=== PATIENT | female | born 1955 | race Caucasian/White ===

== ENCOUNTER 2021-08-26 14:47 | Outpatient (CLI) | payer MEDICARE, BC, SELFPAY ==
--- NOTE | 2021-08-26 14:15 | DI.RAD_ITS ---
Exam(s) XR SHOULDER LT COMPLETE 2+V EXAM: XR SHOULDER LT COMPLETE 2+V CLINICAL HISTORY: Left shoulder pain. TECHNIQUE: 2D digital imaging was performed. Two views. COMPARISON: CR SHOULDER COMPLETE LT from 01/24/2020 MR MRI SHOULDER LT W/O CONTRAST from 04/02/2020 FINDINGS: BONES: Prior distal clavicular resection no acute fracture is present. No bony destructive lesion is seen. JOINTS: No dislocation present. Glenohumeral joint space is well maintained. There is mild spurring at the glenoid and greater tuberosity. SOFT TISSUE: Normal. IMPRESSION: Postsurgical and degenerative changes. DATA REPOSITORY: RADIATION DOSE DELIVERED:
== END 2021-08-26 14:48 | disposition home or self-care (01) ==
LOC: DIORS 14:48
PROVIDERS: PCP Internal Medicine; Referring Provider Internal Medicine; Visit Provider Physician Assistant
DX: M25.512 Pain in left shoulder (principal); Z98.890 Other specified postprocedural states
CPT/HCPCS: 99204; 73030

== ENCOUNTER → 2021-09-29 02:02 | Outpatient (CLI) | payer MEDICARE, BC, SELFPAY ==
--- NOTE | 2021-09-29 07:30 | DI.MRI_ITS ---
Exam(s) MR UPPER JOINT LT WO EXAM: MR UPPER JOINT LT WO CLINICAL HISTORY: LEFT SHOULDER PAIN,s/p arthroscopy, z98.890 TECHNIQUE: Multiplanar multisequence MRI of the shoulder was performed. COMPARISON: CR SHOULDER COMPLETE LT from 01/24/2020 MR MRI SHOULDER LT W/O CONTRAST from 04/02/2020 CR XR SHOULDER LT COMPLETE 2+V from 08/26/2021 FINDINGS: MARROW:There is no evidence of fracture, Hill-Sachs deformity, nor ominous osseous lesions. Compared to the prior MRI study March 2020 there has been interval rotator cuff surgery as well as biceps te nodesis ROTATOR CUFF MECHANISM: AC JOINT/ACROMIUM: Previous surgery. No osteophytic impingement at this level. There is no evidence of os acromiale. Supraspinatus: Intact. No evidence of tear nor muscle atrophy. Infraspinatus: There is a linear focus of signal abnormality at the infraspinatus insertional aspect which is thin but does traverse thickness of the supraspinatus, this just above the greater tuberosit y attachment. Most probably represents a thin full-thickness tear. No muscle atrophy. Teres Minor: Intact. No evidence of tear nor muscle atrophy. Subscapularis/anterior cuff: Intact. No abnormal signal at the level of the multipennate insertional fibers. No significant tear nor atrophy. BICEPS TENDON: Normal position within the intertubercular groove. The biceps tenodesis site is in th e anterior humerus head. No tear nor tenosynovitis evident. LABRUM: There is signal abnormality in the superior labrum posterior to the sublabral recess consiste nt with element of surface tear. Posterior labrum appears intact. Anterior labrum appears intact. Inferior labrum appears intact. Inferior glenohumeral ligament appears intact. GLENOHUMERAL JOINT: No joint effusion nor obvious loose intra-articular bodies. No chondral defects. No osteophytes. No degenerative subarticular cysts. QUADRILATERAL SPACE: No evidence of mass in the region of the axillary nerve and dorsal circumflex hu meral vessels. Visualized triceps muscle at this level appears unremarkable. IMPRESSION: 1. Compared to prior MRI scan of March 2020 there has been interval rotator cuff surgery and biceps tenodesis. 2. Supraspinatus appears intact. Small focus of bright signal is seen traversing the infraspinatus w hich may be thin full-thickness tear but there is no fluid in the overlying subacromial bursa no retr action of the musculotendinous junction.. No muscle atrophy. 3. Subscapularis anterior cuff appears intact as does the teres minor. 4. Superior labral surface signal abnormality consistent with tearing. No other obvious labral tears nor evidence of paralabral cyst. DATA REPOSITORY:
== END ==
PROVIDERS: PCP Internal Medicine; Visit Provider Student in an Organized Health Care Education/Training Program
DX: M25.512 Pain in left shoulder (principal); Z98.890 Other specified postprocedural states
CPT/HCPCS: 73221

== ENCOUNTER → 2021-10-08 11:10 | Outpatient (BNVA) | payer MEDICARE, BC, SELFPAY | PROVIDERS: PCP Internal Medicine; Referring Provider Internal Medicine; Visit Provider Student in an Organized Health Care Education/Training Program | DX: M75.22 Bicipital tendinitis, left shoulder (principal); Z98.890 Other specified postprocedural states | CPT/HCPCS: 99215 ==

== ENCOUNTER 2021-11-18 02:51 | Outpatient (CLI) | payer MEDICARE, BC, SELFPAY ==
[2021-11-18 12:33] LABS: Source Nasal/Nares
[2021-11-18 15:19] LABS: COVID-19 PCR Negative (Negative)
== END 2021-11-18 02:52 | disposition home or self-care (01) ==
LOC: LBO 02:52
PROVIDERS: PCP Internal Medicine; Visit Provider Student in an Organized Health Care Education/Training Program
DX: Z20.822 Contact with and (suspected) exposure to COVID-19 (principal)
CPT/HCPCS: 87635

== ENCOUNTER 2021-11-20 08:53 | Day surgery (SDC) | payer MEDICARE, BC, SELFPAY ==
[2021-11-20] VITALS (10 sets, daily range): BP systolic 80–139; BP diastolic 31–67; PULSE 51–67; RESP 12–18; TEMP 36.2–36.7; O2SAT 97–99; BMI 28.6
[2021-11-20] MEDS: Lactated Ringers 1,000 ML 80 ML IV (09:42)
--- NOTE | 2021-11-20 09:55 | W.ANESPRE ---
General Info Date of Service Date Performed: 11/20/21 Height: 5 ft 2 in Weight: 71 kg Body Mass Index (BMI): 28.6 Surgical Procedure: Operation Date: 11/20/21 11:25 Proposed Procedure Side Surgeon p Shoulder Rotator Cuff Arthroscopic w/Extensive Debridement, Biceps Tenodesis, Subacromial Decompression Left Garo Srivastava MD Meds Allergies and Home Medications Allergies Allergy/AdvReac Type Severity Reaction Status Date / Time dexamethasone [From Decadron] Allergy Verified 11/20/21 09:14 codeine AdvReac Mild Nausea Verified 11/20/21 09:14 gabapentin [From Neurontin] AdvReac Verified 11/20/21 09:14 Home Medication Medication Instructions Recorded amlodipine 2.5 mg tablet 2.5 mg PO HS 08/06/21 betamethasone dipropionate 0.05 % 1 applic topical BID PRN 08/06/21 topical cream cetirizine 10 mg tablet 20 mg PO DAILY PRN 08/06/21 coenzyme Q10 100 mg capsule (Co 100 mg PO QHS 08/06/21 Q-10) folic acid 1 mg tablet 1 mg PO DAILY 08/06/21 hydrochlorothiazide 12.5 mg tablet 12.5 mg PO DAILY 08/06/21 levothyroxine 50 mcg tablet See Rx Instructions PO DAILY 08/06/21 (Synthroid) methotrexate sodium 2.5 mg tablet 2.5 mg PO QWEEK 08/06/21 montelukast 10 mg tablet 10 mg PO DAILY 08/06/21 (Singulair) tacrolimus 0.1 % topical ointment 1 applic topical BID 08/06/21 zolpidem 5 mg tablet (Ambien) 5 mg PO QHS PRN 08/26/21 losartan 100 mg tablet 50 mg PO DAILY 10/08/21 rosuvastatin 5 mg tablet See Rx Instructions PO DAILY 10/08/21 tildrakizumab-asmn 100 mg/mL 100 mg subcut Q12W 10/08/21 subcutaneous syringe (Ilumya) Current Visit Medications: Current Medications Generic Name Dose Route Start Last Admin Trade Name Freq PRN Reason Stop Dose Admin Ringer's Solution 1,000 mls @ 80 mls/hr 11/20/21 06:00 11/20/21 09:42 IV 12/19/21 23:59 80 mls/hr INFUSION DILMA Administration Cefazolin Sodium/Dextrose 2 gm in 50 mls @ 100 mls/hr 11/20/21 06:00 Ancef Duplex IVPB 12/19/21 23:59 PREOP DILMA IV Miscellaneous Supplies 1 each 11/20/21 06:00 Iv Access IV 12/19/21 23:59 DIRECTED DILMA Sodium Chloride 0 ml 11/20/21 06:00 Normal Saline Flush 10 Ml Syr IV 12/19/21 23:59 PRN PRN Sodium Chloride 0 ml 11/20/21 06:00 Normal Saline 10 Ml Vial IJ 12/19/21 23:59 DIRECTED PRN Sterile Water 0 ml 11/20/21 06:00 Water,Injection,Sterile 10 Ml Vial IJ 12/19/21 23:59 DIRECTED PRN PFSH Active Problems Active Problems: Problem Status Onset Code Asthma J45.909 Hyperlipemia E78.5 Hypothyroid E03.9 Former smoker Z87.891 Status post arthroscopy of left shoulder 04/23/20 Z98.890 Tendinitis of long head of biceps brachii of left shoulder M75.22 Medical History Medical History (Updated 11/20/21 @ 09:20 by Ross Knight) 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 states all negative 11/17/[address] [facility] [place] Medical History Comments:: Severe PONV r/t to general anesthesia per pt. Does well with Zofran. Surgical History Surgical History History of back surgery c6-c7 fusion and plating History of rotator cuff surgery right History of superficial keratectomy Hx of discectomy L5-S1 Tobacco Smoking/Tobacco Use Status: Former Tobacco Use Alcohol Alcohol Intake: current Alcohol intake frequency: a few times a week Substance Use Substance use: Never Substance use type: does not use Vital Signs and Lab Results Vital Signs Most Recent Vital Signs in EMR: Most Recent Vital Signs Temp Pulse Resp BP Pulse Ox 36.6 C 63 16 135/60 99 11/20/21 09:21 11/20/21 09:21 11/20/21 09:21 11/20/21 09:21 11/20/21 09:21 Lab Results Blood Type / Crossmatch: No Data to Display Complete Blood Count: No Data to Display Complete Metabolic Panel: No Data to Display Liver Function Panel: No Data to Display Coagulation Panel: No Data to Display Cardiac Panel: No Data to Display Arterial Blood Gas: No Data to Display Venous Blood Gas: No Data to Display Pancreas Panel: No Data to Display Thyroid Panel: No Data to Display Infectious Disease: Coronavirus (COVID-19)(PCR) Negative (Negative) 11/18/21 10:25 Coronavirus 2019 Source Nasal/Nares 11/18/21 10:25 Blood Cultures: No Data to Display Toxicology Panel: No Data to Display Imaging and Studies Imaging and Studies Study information below may be from another EMR and interpreted by another provider. Please see original notes in EMR for more complete details. EKG Summary: 11/19/2021: Stress ECG negative associated with exercise stress ECHO Stress Test Summary: 11/19/2021: Exercise Stress ECHO negative for ischemia, EF 55-60% Other Study Summary:: Abdomen/Pelvis CT: 11/11/2021: No aortic mass, patient was reporting abdominal pain radiating to back Anesthesia Assessment and Plan Anesthesia History Personal History: PONV Family History: No Family History of Anesthesia Complications Exercise Tolerance Exercise Tolerance: Metabolic Equivalents>4 Pertinent Negatives Pertinent Negatives: No Symptoms of GERD, No Major Cardiovascular Symptoms or Complaints (Patient reports studies/Stress ECHO completed at [facility] and patient reports no further interventions indicated.) and No Major Pulmonary Symptoms or Complaints Cardiac & Pulmonary Exam Cardiac Exam: Normal S1/S2 Heart Sounds Pulmonary Exam: Clear Bilateral Breath Sounds Implantable Cardiac Device Does patient have a Pacemaker or an ICD?: No Airway Exam Known Difficult Airway: No Mallampati Class: 2 Mouth Opening: Normal (> 3cm) Thyromental Distance: Greater than 3 cm Neck Range of Motion: Full ROM Neck Circumference: Normal Teeth Condition: Normal Dentition ASA Classification ASA Score: ASA 2 Emergency Case?: No NPO Status NPO Status: NPO Clears >2 hours, Solids >8 hours Anesthesia Plan Resuscitation Status: Full Code Anesthesia Technique: General Anesthesia Airway Planned: Endotracheal Tube Pain Management: Surgeon and patient request nerve block Monitors Used: Standard Monitors
--- NOTE | 2021-11-20 12:18 | W.ANESNERVE ---
Nerve Block Single Injection Procedure Date and Time Date Performed: 11/20/21 Procedure Start: 11:12 Location Where Procedure Performed Procedure Location: Day Surgery Unit Reason Performed: Postoperative Analgesia Requesting Provider: Garo Srivastava Timeout Performed Timeout Performed: Yes Monitoring Used ECG, Blood Pressure, SpO2 and See EMR for corresponding vital signs Sterility Sterility: Hand Hygiene, Surgical Cap, Surgical Mask, Sterile Gloves and Chlorhexidine Sedation Given During Procedure Sedation Given (Indicate Dose Given): Versed IV Dose:: 2mg Patient Mental Status Patient Mental Status: Awake Nerve Block 1st Nerve Block: Laterality: Left Block Type: Interscalene Needle / Catheter Used: 80mm SonoPlex II Local Anesthetic Bolus (Indicate Dose Given): Lidocaine used for local infiltration of skin, Injected in 3-5ml increments after negative blood aspiration and Bupivacaine 0.5% Dose:: 20ml Additives (Indicate Dose Given): None Ultrasound: Sterile probe cover and gel used Ultrasound Image Saved?: Yes Nerve Stimulator: Not Used Paresthesia: None Procedure Tolerated: No Complications and Patient tolerated well Procedure Outcome: Successful Performed By: Jose M Bates
[2021-11-20] MEDS: ceFAZolin 2 GM/50 ML BAG IVPB (12:20)
[2021-11-20] MEDS: EPINEPHrine 30 MG/30 ML VIAL (13:03)
[2021-11-20] MEDS: ePHEDrine 25 MG/5 ML Syringe IVP (13:57)
--- NOTE | 2021-11-20 15:19 | W.ANESPOSTOP ---
Postoperative Evaluation Date, Time and Location Date Performed: 11/20/21 Time Performed: 15:19 Patient Location: Day Surgery Unit Vital Signs Most Recent Imported Vital Signs: Most Recent Vital Signs Temp Pulse Resp BP Pulse Ox 36.2 C L 61 16 116/59 L 97 11/20/21 15:04 11/20/21 15:04 11/20/21 15:04 11/20/21 15:04 11/20/21 15:04 Pain Score Most Recent Pain Score: Most Recent Pain Score Pain Level 0 11/20/21 15:04 Assessment Mental Status: Awake (Alert & Oriented to Patient Baseline) Airway and Respiratory Function: Patent airway with normal (patient baseline) respiratory exam Cardiovascular Function: Hemodynamically Stable Hydration Status: Adequately Hydrated Nausea & Vomiting: No Nausea or Vomiting Pain: Pt. Denies Any Pain Peripheral Nerve Block: Regional nerve block not resolved at time of post operative discharge
--- NOTE | 2021-11-20 16:10 | W.PM.DSUDISC ---
Discharge Plan Disposition Patient Disposition: HOME Condition: Stable Discharge Details Reason For Visit: Left shoulder surgery Attending Provider: Garo Srivastava Primary Care Provider: Yusuf Herring Home Meds and New Rx's Prescriptions: New naproxen 250 mg tablet 250 - 500 mg PO BID PRNQty: 40 0RF Rx Instructions: take with a meal aspirin 81 mg tablet,delayed release (DR/EC) 81 mg PO DAILY 14 Days Qty: 14 0RF tramadol 50 mg tablet 50 mg PO Q8H PRN (Reason: severe pain) Qty: 9 0RF ondansetron 4 mg tablet,disintegrating 4 mg PO Q6H PRN (Reason: nausea or vomiting) Qty: 5 0RF Continued zolpidem [Ambien] 5 mg tablet 5 mg PO QHS PRN Ilumya 100 mg/mL syringe 100 mg subcut Q12W amlodipine 2.5 mg tablet 2.5 mg PO HS betamethasone dipropionate 0.05 % cream 1 applic topical BID PRN cetirizine 10 mg tablet 20 mg PO DAILY PRN coenzyme Q10 [Co Q-10] 100 mg capsule 100 mg PO QHS folic acid 1 mg tablet 1 mg PO DAILY hydrochlorothiazide 12.5 mg tablet 12.5 mg PO DAILY methotrexate sodium 2.5 mg tablet 2.5 mg PO QWEEK montelukast [Singulair] 10 mg tablet 10 mg PO DAILY levothyroxine [Synthroid] 50 mcg tablet See Rx Instructions PO DAILY Rx Instructions: TAKE 1 TBALET BY MOUTH MON-FRI AND 1.5 TABS ON WEEKEND tacrolimus 0.1 % ointment 1 applic topical BID losartan 100 mg tablet 50 mg PO DAILY rosuvastatin 5 mg tablet See Rx Instructions PO DAILY Rx Instructions: DAILY Discharge Instructions Additional Instructions: Surgery: Revision left shoulder arthroscopy with biceps tenodesis, extensive debridement (including synovial biopsy), and subacromial decompression. Activity: You should gradually increase range of motion motion and use of your shoulder. Protect the biceps repair. You may use your shoulder for all regular activities. Avoid heavy lifting, reaching overhead, and lifting away from body for approximately 6 to 8 weeks. You may use the sling whenever you are out of the house for a few weeks. At home it is best to remove the sling and rest the arm on a pillow at your side or support the operative side with your other hand. A physical therapy prescription will be provided in the office at follow-up as needed. Prescriptions: Aspirin 81 mg take 1 daily to prevent a blood clot for 2 weeks Naproxen 250 mg take 1-2 every 12 hours with a meal as needed for moderate pain Tramadol 50 mg take 1 every 6?8 hours as needed for severe pain You may use [id number] Tylenol (acetaminophen) as needed for mild pain. These pain medications may be taken all at once or in different combinations as needed. Ondansetron (Zofran) 4 mg take 1 orally dissolving tablet every 6 hours as needed for nausea or vomiting Also, recommend Colace (docusate) as a stool softener as surgery and pain medicine cause constipation. You may try [id number] diphenhydramine (Benadryl) 25-50 mg nightly as a sleep aid Dressings: Remove shoulder bandage after 3 days. Leave the sticky Steri-Strips in place until they fall off or remove them after you shower. Cover the incisions with Band-Aids or leave them open to air. You may shower after 5 days. Follow-up: 10-[address] Srivastava You may take off the leg compression stockings this evening at home. You may also leave them on a few days longer if you have a history of leg swelling or edema. Let us know right away if you develop any redness, drainage, fevers, chest pain, or trouble breathing. Do not drink alcohol or drive for at least 24 hours after anesthesia. Please call the office during business hours with any questions or concerns. Stand Alone Forms: Anesthesia Discharge Inst.Manjeet.Nerve Block Instructions, Bev Wesley (DSU) DS: Diagnosis Discharge Diagnosis (1) Status post arthroscopy of left shoulder: Status: Acute (2) Tendinitis of long head of biceps brachii of left shoulder: Status: Acute
--- NOTE | 2021-11-20 16:18 | ROE_ITS ---
Operative Note Operative Note DATE OF PROCEDURE: 11/20/21 PRE-OP DIAGNOSIS: Right: 1. Rotator cuff tear 2. LHB tendinopathy 3. Bursitis POST-OP DIAGNOSIS: same PROCEDURE: Right: 1. Arthroscopic biceps tenodesis, CPT# 40876. This involved arthroscopically suturing and reattaching the long head of the biceps tendon to the proximal humerus at the superior margin of the bicipital groove with a screw at the correct tension. 2. Extensive debridement, CPT# 18160. This involved using arthroscopic hand instruments, power instruments, and radiofrequency instruments to release the long head of the biceps tendon and debride areas of labral tearing, synovitis, release [facility] L, obtain synovial biopsies for culture, and remove retained exposed permanent suture, and chondromalacia about the humeral head within the glenohumeral joint anteriorly, superiorly and posteriorly. 3. Subacromial decompression with partial acromioplasty, CPT# 28257. This involved using arthroscopic power instruments and a radiofrequency wand to complete a bursectomy and smooth the undersurface of the acromion. The behavioral modification assistant was medically required in order to help assist in techniques above, which require positioning the arm, holding the arthroscope, and jolene pulating multiple instruments and sutures at the same time. This cannot be done without the help of an experienced behavioral modification assistant. SURGEON: Garo Srivastava SALES LEADER: Oli Bell ANESTHESIA TYPE: General LMA/ETT and Primary Nerve Block Refer to Anesthesia Record ESTIMATED BLOOD LOSS: 10 PATHOLOGY: none sent COMPLICATIONS: None Patient was transported to: PACU Patient's condition: stable Implants: Arthrex: 4.75mm SwiveLocks x 1 Indications: The patient was diagnosed with the above conditions and appropriately indicated for surgical intervention. Please see complete medical record for details. Findings: Exam under anesthesia: Full range of motion, no instability Glenohumeral joint: Significant chondromalacia grade 2?3 mostly fibrillations with some moderate fissures humeral head and glenoid. Intact articular rotator cuff repair with single possibly anterior medial row FiberTape exposed. Well fixed to rotator cuff above and anchor. Resected in the middle. Significant labral fraying especially superiorly to the 6 and anterior posteriorly. Subscapularis with mild central degeneration but no detachment from lesser tuberosity. Long head biceps tendon present with moderate synovitis the bicipital groove. Subacromial space: Profound scarring adhesions between rotator cuff and bursal space undersurface acromion and deltoid fascia anterior laterally and posteriorly. Intact rotator cuff repair. No separate appreciable infraspinatus tear. Procedure Description: In the operating room, general anesthesia was induced. Bilateral shoulders were examined. The patient was positioned in the beachchair position. All bony prominences were well-padded. Preoperative antibiotics were held pending tissue samples. The shoulder was prepped and draped in the usual sterile fashion. The correct patient, procedure, and side of the procedure were all verified prior to incision. Starting through a new posterior portal a standard complete diagnostic arthroscopy was performed of the glenohumeral joint including inspection of the long head of the biceps, anterior and superior labrum, subscapularis tendon, supraspinatus and infraspinatus tendons, and axillary recess. The glenoid and humeral head cartilage as well as the posterior labrum were inspected from an anterior viewing portal. Significant findings and interventions noted above. The prior anterior portal was used. Pituitary rongeur was used to obtain multiple tissue samples from multiple sites about the glenohumeral joint. There was no significant synovitis or obvious pathologic or infectious findings. The pituitary rongeur and arthropathies were also used to remove a visible medial row FiberTape suture that was well fixed to its anchor and rotator cuff but had an exposed segment. After the samples were obtained and divided into 2 specimen cups, cefazolin antibiotics were administered. An all-arthroscopic suprapectoral biceps tenodesis was performed through an anterior portal using a Loop N Tack method with a SutureTape FiberLink cinched around and through the tendon. The biceps was tenotomized from the labrum and fixated with a suture anchor at the superior margin of the bicipital groove. Starting through the posterior portal, the arthroscope was directed into the subacromial space. There was profound scarring adhesions between the rotator cuff, bone, and sub-deltoid tissue everywhere. The existing high lateral portal was used. A combination of power instruments and a radiofrequency ablator were used to carefully and meticulously debride adhesions, scarring, and bursitis anteriorly, posteriorly, and laterally as well as expose and confirm smoothing the undersurface of the acromion. The coracoacromial ligament was partially released. The undersurface of the AC joint did not have impingement and abnormal mobility. Was the bursectomy was completed viewing laterally and working from posteriorly and the rotator cuff was thoroughly inspected with findings noted above. There is no apparent failure of the rotator cuff repair or new tear and the rotator cuff demonstrated fairly regular anatomy and trampoline after this challenging and extensive subacromial decompression. The shoulder was drained of arthroscopic fluid. All portal sites were copiously irrigated. These incisions were closed using 3-0 Monocryl in a buried fashion and then covered with Mastisol, Steri-Strips, Xeroform, dry gauze, and ABDs. The dressings were covered and secured with Medipore tape. The operative extremity was placed into a sling for immobilization. The patient awoke from anesthesia without complication and was transferred to the recovery room in a stable condition.
== END 2021-11-20 16:15 | disposition home or self-care (01) ==
PROVIDERS: PCP Internal Medicine; Visit Provider Student in an Organized Health Care Education/Training Program
PROC: (CPT 29827; principal; 2021-11-20 11:15)
DX: M75.22 Bicipital tendinitis, left shoulder (principal); M75.111 Incomplete rotator cuff tear or rupture of right shoulder, not specified as traumatic; M75.51 Bursitis of right shoulder; M94.211 Chondromalacia, right shoulder; M75.01 Adhesive capsulitis of right shoulder
CPT/HCPCS: 29828; 29823; 29826; 76942; 99214; 87070; 87075; 87205; J0690; J1100; J2250; J2370; J2405; J2704

== ENCOUNTER 2021-12-03 11:53 | Outpatient (CLI) | payer MEDICARE, BC, SELFPAY | END 2021-12-03 11:54 | disposition home or self-care (01) | LOC: DIORS 11:54 | PROVIDERS: PCP Internal Medicine; Referring Provider Internal Medicine; Visit Provider Student in an Organized Health Care Education/Training Program | DX: Z47.89 Encounter for other orthopedic aftercare (principal); M75.22 Bicipital tendinitis, left shoulder; Z98.890 Other specified postprocedural states ==

== ENCOUNTER → 2022-01-14 10:32 | Outpatient (BNVA) | payer MEDICARE, BC, SELFPAY | PROVIDERS: PCP Internal Medicine; Referring Provider Internal Medicine; Visit Provider Student in an Organized Health Care Education/Training Program | DX: Z47.89 Encounter for other orthopedic aftercare; M75.22 Bicipital tendinitis, left shoulder ==

== ENCOUNTER → 2022-02-25 10:21 | Outpatient (BNVA) | payer MEDICARE, BC, SELFPAY | PROVIDERS: PCP Internal Medicine; Referring Provider Internal Medicine; Visit Provider Student in an Organized Health Care Education/Training Program | DX: Z47.89 Encounter for other orthopedic aftercare (principal); M75.22 Bicipital tendinitis, left shoulder; Z98.890 Other specified postprocedural states | CPT/HCPCS: 99213 ==

== ENCOUNTER 2023-09-27 15:06 | Outpatient (CLI) | payer MEDICARE, BC, SELFPAY ==
--- NOTE | 2023-09-27 13:15 | DI.RAD_ITS ---
Exam(s) XR KNEE RT 4V AP,LAT,EMMY,PAT EXAM: XR KNEE RT 4V AP,LAT,EMMY,PAT CLINICAL HISTORY: R knee injury. TECHNIQUE: 2D digital imaging was performed. Three views. COMPARISON: No exams were available for comparison FINDINGS: BONES: No acute fracture is present. No bony destructive lesion is seen. Enthesophyte the upper pole of the patella. Subchondral cysts noted articular aspect of the patella, near the apex. JOINTS: Mild periarticular spurring. The knee is normally aligned. No joint effusion is seen. SOFT TISSUE: Normal. IMPRESSION: [id number] degenerative changes, greatest of the patellofemoral joint. DATA REPOSITORY: RADIATION DOSE DELIVERED:
== END 2023-09-27 15:07 | disposition home or self-care (01) ==
PROVIDERS: Visit Provider Physician Assistant
DX: S80.01XA Contusion of right knee, initial encounter; W19.XXXA Unspecified fall, initial encounter
CPT/HCPCS: 20610; 99213; J1010; 73564

== ENCOUNTER → 2023-12-31 10:10 | Outpatient (BNVA) | payer MEDICARE, BC, SELFPAY | PROVIDERS: Visit Provider Physician Assistant | DX: M23.91 Unspecified internal derangement of right knee (principal) | CPT/HCPCS: 99213 ==

== ENCOUNTER 2024-01-20 01:46 | Outpatient (CLI) | payer MEDICARE, BC, SELFPAY ==
--- NOTE | 2024-01-20 07:15 | DI.MRI_ITS ---
Exam(s) MR LOWER JOINT RT WO EXAM: MR LOWER JOINT RT WO CLINICAL HISTORY: PAIN,internal derangement rt knee, m23.91. TECHNIQUE: Multiplanar multisequence MRI was performed. COMPARISON: CR XR KNEE RT 4V AP,LAT,EMMY,PAT from 09/27/2023 FINDINGS: BONES: There is no fracture or contusion pattern. Spurring at medial femoral condyle and medial tib ial plateau. Some jet subcortical D degenerative high signal in the medial femoral condyle and at pa tellar apex. JOINTS: A small joint effusion is present. Articular cartilage: Patellofemoral joint: Thinning cartilage of the lateral patellar facet, worst at the apex where it e xtends at the bone. Abnormal high signal at patellar apex.. Medial femoral tibial joint: Cartilage thinning extending down to involving underlying bone. Lateral femoral tibial joint: Cartilage irregularity of multifocal areas of thinning of the mid late ral femoral condyle lateral tibial plateau. LIGAMENTS/TENDONS: Anterior Cruciate: Unremarkable. Posterior Cruciate: Unremarkable. Medial Collateral:Unremarkable. Lateral Collateral ligament complex: Unremarkable. Extensor mechanism: Unremarkable. Medial retinaculum: Unremarkable. Lateral retinaculum: Unremarkable. Popliteus: Unremarkable. MENISCI: The medial meniscus is somewhat diminutive and peripherally displaced consistent with degenerative ch anges. There is some intrasubstance degenerative signal and question of superimposed linear high sig nal in the body and posterior horn. The lateral meniscus is unremarkable. MUSCLES: Unremarkable. SOFT TISSUES: Mild anterior soft tissue edema. 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 Degenerative changes of the medial meniscus with question of superimposed tear of the body. DATA REPOSITORY:
== END 2024-01-20 02:06 ==
LOC: DI 01:46
PROVIDERS: Visit Provider Student in an Organized Health Care Education/Training Program
DX: M22.41 Chondromalacia patellae, right knee (principal)
CPT/HCPCS: 73721

== ENCOUNTER → 2024-01-27 11:06 | Outpatient (BNVA) | payer MEDICARE, BC, SELFPAY | PROVIDERS: Visit Provider Student in an Organized Health Care Education/Training Program | DX: M94.261 Chondromalacia, right knee (principal); M23.203 Derangement of unspecified medial meniscus due to old tear or injury, right knee | CPT/HCPCS: 99213 ==

== ENCOUNTER 2024-03-17 01:53 | Outpatient (CLI) | payer MEDICARE, BC, SELFPAY ==
[2024-03-17 10:08] LABS: HCT 41.3 % (36.0-46.0); HGB 14.4 g/dL (11.2-15.7); MCH 31.2 pg (27.0-33.0); MCHC 34.9 % (32.0-36.0); MCV 89 fL (80-95); MPV 9.6 fL (8.0-11.0); Platelet Count 432 10^3/uL (130-400); RBC 4.62 10^6/uL (3.93-5.22)
[2024-03-17 10:31] LABS: Anion Gap 10.5 mmol/L (3-11); BUN 25 mg/dL (7-18); CO2 28.5 mmol/L (21.0-32.0); CREATININE 1.3 mg/dL (0.55-1.02); Calcium 9.4 mg/dL (8.5-10.1); Chloride 103 mmol/L (98-107); Estimated GFR 45.07 (mL/min/1.73m2); Glucose 111 mg/dL (74-106); Potassium 3.5 mmol/L (3.5-5.1); Sodium 142 mmol/L (136-145)
== END 2024-03-17 01:54 | disposition home or self-care (01) ==
LOC: LBO 01:53
PROVIDERS: Visit Provider Student in an Organized Health Care Education/Training Program
DX: M17.11 Unilateral primary osteoarthritis, right knee (principal); Z01.818 Encounter for other preprocedural examination
CPT/HCPCS: 36415; 80048; 85027; 99024; 77073

== ENCOUNTER 2024-03-17 10:42 | Outpatient (CLI) | payer MEDICARE, BC, SELFPAY ==
--- NOTE | 2024-03-17 08:45 | DI.RAD_ITS ---
Exam(s) XR STANDING ALIGNMENT EXAM: XR STANDING ALIGNMENT CLINICAL HISTORY: RIGHT KNEE PRE OP. TECHNIQUE: 2D digital imaging was performed. Standing AP views were performed from the pelvis throu gh the ankles. COMPARISON: CR XR KNEE RT 4V AP,LAT,EMMY,PAT from 09/27/2023 FINDINGS: BONES: No acute fracture is present. No bony destructive lesion is seen. Leg length discrepancy: No significant overall leg length discrepancy. JOINTS: Knees: Mild narrowing of the medial femoral tibial joint space and mild periarticular spurrin g. The left knee joint spaces are maintained. The ankle joints are unremarkable. The hip joints are unremarkable. SOFT TISSUE: Normal. IMPRESSION: Mild degenerative changes of the right knee. No significant leg length discrepancy. DATA REPOSITORY: RADIATION DOSE DELIVERED:
== END 2024-03-17 10:43 | disposition home or self-care (01) ==
LOC: DIORS 10:43
PROVIDERS: Visit Provider Physician Assistant
DX: M94.261 Chondromalacia, right knee (principal); Z01.818 Encounter for other preprocedural examination
CPT/HCPCS: 77073

== ENCOUNTER 2024-03-29 08:25 | Day surgery (SDC) | payer MEDICARE, BC, SELFPAY ==
--- NOTE | 2024-03-28 18:24 | W.ANESPRE ---
General Info Date of Service Date Performed: 03/29/24 Height: 5 ft 2 in Weight: 81.647 kg Body Mass Index (BMI): 32.9 Surgical Procedure: Operation Date: 03/29/24 11:40 Proposed Procedure Side Surgeon p Knee Total Arthroplasty, Cementless CR Right Blas Simon MD Meds Allergies and Home Medications Allergies Allergy/AdvReac Type Severity Reaction Status Date / Time dexamethasone (From Decadron) Allergy Other (See Verified 03/29/24 08:44 Comment) methylprednisolone (From AdvReac Severe Other (See Verified 03/29/24 08:44 Solu-Medrol) Comment) codeine AdvReac Mild Nausea Verified 03/29/24 08:44 gabapentin (From Neurontin) AdvReac Other (See Verified 03/29/24 08:44 Comment) Home Medication ?Medication ?Instructions ?Recorded amlodipine 2.5 mg tablet 2.5 mg PO HS 08/06/21 betamethasone dipropionate 0.05 % 1 applic topical BID PRN 08/06/21 topical cream folic acid 1 mg tablet 1 mg PO DAILY 08/06/21 levothyroxine 50 mcg tablet See Rx Instructions PO DAILY 08/06/21 (Synthroid) montelukast 10 mg tablet 10 mg PO DAILY 08/06/21 (Singulair) losartan 100 mg tablet 50 mg PO DAILY 10/08/21 rosuvastatin 5 mg tablet See Rx Instructions PO DAILY 10/08/21 methotrexate sodium 2.5 mg tablet 15 mg PO QWEEK 01/14/22 cetirizine 10 mg tablet 10 mg PO DAILY 09/27/23 secukinumab 25 mg/mL intravenous IV 09/27/23 solution (Cosentyx) furosemide 20 mg tablet (Lasix) 20 mg PO DAILY 03/17/24 Current Visit Medications: Current Medications Generic Name Dose Route Start Last Admin Trade Name Freq PRN Reason Stop Dose Admin Acetaminophen 1,000 mg 03/29/24 06:00 Acetaminophen 500 Mg Tab PO 03/29/24 23:59 PREOP DILMA Celecoxib 400 mg 03/29/24 06:00 Celecoxib 200 Mg Cap PO 03/29/24 23:59 PREOP DILMA Gabapentin 300 mg 03/29/24 06:00 Gabapentin 300 Mg Cap PO 03/29/24 23:59 PREOP DILMA Ringer's Solution 1,000 mls @ 80 mls/hr 03/29/24 06:00 IV 03/29/24 23:59 INFUSION DILMA Cefazolin Sodium/Dextrose 2 gm in 50 mls @ 100 mls/hr 03/29/24 06:00 Ancef Duplex IVPB 03/29/24 23:59 PREOP DILMA Tranexamic Acid/Sodium Chloride 1,000 mg in 100 mls @ 600 mls/hr 03/29/24 06:00 IVPB 03/29/24 23:59 PREOP DILMA IV Miscellaneous Supplies 1 each 03/29/24 06:00 Iv Access IV 03/29/24 23:59 DIRECTED DILMA Sodium Chloride 0 ml 03/29/24 06:00 Normal Saline Flush 10 Ml Syr IV 03/29/24 23:59 PRN PRN Sodium Chloride 0 ml 03/29/24 06:00 Normal Saline 10 Ml Vial IJ 03/29/24 23:59 DIRECTED PRN Sterile Water 0 ml 03/29/24 06:00 Water,Injection,Sterile 10 Ml Vial IJ 03/29/24 23:59 DIRECTED PRN PFSH Active Problems Active Problems: Problem Status Onset Code Degenerative tear of medial meniscus of right knee Acute M23.203 Chondromalacia, right knee Acute M94.261 Internal derangement of right knee Acute M23.91 Contusion of right knee Acute S80.01XA Asthma Chronic J45.909 Hyperlipemia Acute E78.5 Hypothyroid Chronic E03.9 Former smoker Acute Z87.891 Status post arthroscopy of left shoulder Acute 04/23/20 Z98.890 Tendinitis of long head of biceps brachii of left shoulder Acute M75.22 Medical History Medical History (Updated 03/29/24 @ 09:03 by Carolyn Beltrán) PONV (postoperative nausea and vomiting) Kermit's disease HTN (hypertension) History of Prinzmetal angina cardiac (stress test and ECHO) work-up 11/17/21 Treadmill stress test negative for angina pectoris for abdominal pain radiating to back and into shoulder blades-per pt. states all negative 11/17/21 @ [facility] [place] Psoriasis Psoriatic arthritis IBS (irritable bowel syndrome) Back pain Medical History Comments:: Severe PONV r/t to general anesthesia per pt. Does well with Zofran. Surgical History Surgical History History of superficial keratectomy Hx of discectomy L5-S1 History of back surgery c6-c7 fusion and plating History of rotator cuff surgery right Tobacco Smoking/Tobacco Use Status: Former Tobacco Use Alcohol Alcohol Intake: current Alcohol intake frequency: a few times a week Substance Use Substance use: Never Substance use type: does not use Vital Signs and Lab Results Vital Signs Most Recent Vital Signs in EMR: Temp Pulse Resp BP Pulse Ox 36.7 C 75 16 159/79 H 98 03/29/24 09:01 03/29/24 09:01 03/29/24 09:01 03/29/24 09:01 03/29/24 09:01 Lab Results Blood Type / Crossmatch: No Data to Display Complete Blood Count: White Blood Count 7.70 10^3/uL (4.4-10.8) 03/17/24 10:03 Red Blood Count 4.62 10^6/uL (3.93-5.22) 03/17/24 10:03 Hemoglobin 14.4 g/dL (11.2-15.7) 03/17/24 10:03 Hematocrit 41.3 % (36.0-46.0) 03/17/24 10:03 Platelet Count 432 10^3/uL (130-400) H 03/17/24 10:03 Complete Metabolic Panel: Sodium 142 mmol/L (136-145) 03/17/24 10:03 Potassium 3.5 mmol/L (3.5-5.1) 03/17/24 10:03 Chloride 103 mmol/L (98-107) 03/17/24 10:03 Carbon Dioxide 28.5 mmol/L (21.0-32.0) 03/17/24 10:03 BUN 25 mg/dL (7-18) H 03/17/24 10:03 Creatinine 1.3 mg/dL (0.55-1.02) H 03/17/24 10:03 Est GFR (CKD-EPI 2020) 45.07 (mL/min/1.73m2) 03/17/24 10:03 Calcium 9.4 mg/dL (8.5-10.1) 03/17/24 10:03 Glucose 111 mg/dL (74-106) H 03/17/24 10:03 Liver Function Panel: No Data to Display Coagulation Panel: No Data to Display Cardiac Panel: No Data to Display Arterial Blood Gas: No Data to Display Venous Blood Gas: No Data to Display Pancreas Panel: No Data to Display Thyroid Panel: No Data to Display Infectious Disease: No Data to Display Blood Cultures: No Data to Display Toxicology Panel: No Data to Display Imaging and Studies Imaging and Studies Study information below may be from another EMR and interpreted by another provider. Please see original notes in EMR for more complete details. EKG Summary: 11/19/2021: Stress ECG negative associated with exercise stress ECHO Stress Test Summary: 11/19/2021: Exercise Stress ECHO negative for ischemia, EF 55-60% Other Study Summary:: Abdomen/Pelvis CT: 11/11/2021: No aortic mass, patient was reporting abdominal pain radiating to back Anesthesia Assessment and Plan Anesthesia History Personal History: PONV Family History: No Family History of Anesthesia Complications Exercise Tolerance Exercise Tolerance: Metabolic Equivalents>4 Pertinent Negatives Pertinent Negatives: No Symptoms of GERD Cardiac & Pulmonary Exam Cardiac Exam: Normal S1/S2 Heart Sounds Pulmonary Exam: Clear Bilateral Breath Sounds Implantable Cardiac Device Does patient have a Pacemaker or an ICD?: No Airway Exam Known Difficult Airway: No Mallampati Class: 2 Mouth Opening: Normal (> 3cm) Thyromental Distance: Less than 3 cm Neck Range of Motion: Full ROM Neck Circumference: Normal Teeth Condition: Normal Dentition ASA Classification ASA Score: ASA 2 Emergency Case?: No NPO Status NPO Status: NPO Clears >2 hours, Solids >8 hours Anesthesia Plan Resuscitation Status: Full Code Anesthesia Technique: Spinal Anesthesia Airway Planned: Natural Airway Pain Management: Surgeon and patient request nerve block Monitors Used: Standard Monitors Preoperative Comments:: 68 yo female for TKA. Has a sensitivity to dexamethasone. Sig PMHx: coronary artery vasospasm (amlodipine), HTN (losartan, furosemide), asthma (singular), GERD (famotidine), hypothyroid (levothyroxine), psoriatic arthritis, c6-7 fusion, L5-s1 discectomy. former smoker, occ EtOH. Stress ECHO: LVEF 55-65%, mild hypertrophy, mild MR, PAS 33mmhg. no WMA. Previous Anes: PONV in the past due to opioid - shoulder, glide 3 grade 2b, easy mask. did received dexamethasone.
[2024-03-29] VITALS (19 sets, daily range): BP systolic 117–164; BP diastolic 48–82; PULSE 68–85; RESP 12–22; TEMP 36.1–36.8; O2SAT 94–100; BMI 32.9
[2024-03-29] MEDS: Acetaminophen 500 MG TAB 1000 MG PO (09:09)
[2024-03-29] MEDS: Celecoxib 200 MG CAP 400 MG PO (09:09)
[2024-03-29] MEDS: Lactated Ringers 1,000 ML 80 ML IV (09:20)
--- NOTE | 2024-03-29 11:11 | PDOC.DSDIS_ITS ---
Date of service: 03/29/24 Discharge Plan Disposition Patient Disposition: Home Condition: Good Discharge Details Reason For Visit: R TKR Attending Provider: Blas Simon Primary Care Provider: Lupe Stratton Home Meds and New Rx's Prescriptions: New aspirin 81 mg tablet,delayed release (DR/EC) 81 mg PO BID Qty: 60 0RF acetaminophen 500 mg tablet 1,000 mg PO TID Qty: 90 3RF hydromorphone 2 mg tablet 1 - 2 mg PO Q4H PRN (Reason: pain) Qty: 20 0RF pantoprazole 40 mg tablet,delayed release (DR/EC) 40 mg PO DAILY Qty: 30 0RF ibuprofen 600 mg tablet 600 mg PO TID PRNQty: 90 3RF Continued furosemide [Lasix] 20 mg tablet 20 mg PO DAILY Cosentyx 25 mg/mL solution IV amlodipine 2.5 mg tablet 2.5 mg PO HS betamethasone dipropionate 0.05 % cream 1 applic topical BID PRN folic acid 1 mg tablet 1 mg PO DAILY montelukast [Singulair] 10 mg tablet 10 mg PO DAILY levothyroxine [Synthroid] 50 mcg tablet See Rx Instructions PO DAILY Patient Comments: TAKES BRAND SYNTHROID ONLY PER PT. Rx Instructions: TAKE 1 TABLET BY MOUTH MON-FRI AND 1.5 TABS ON WEEKEND losartan 100 mg tablet 50 mg PO DAILY rosuvastatin 5 mg tablet See Rx Instructions PO DAILY Rx Instructions: DAILY methotrexate sodium 2.5 mg tablet 15 mg PO QWEEK cetirizine 10 mg tablet 10 mg PO DAILY Discharge Instructions Additional Instructions: Total Knee Discharge Instructions Activity: The most important activity is to walk and to work on gentle motion (both flexion and extension). You should try to take short walks a few times a day. It is important that when resting you work on keeping the knee straight. Avoid putting a pillow behind the knee as this will encourage flexion. Work on range of motion exercises as provided by Physical Therapy. - Start outpatient physical therapy within 2 weeks. - You should wear the PARISH hose on both legs for 2 weeks. You may remove these at night. You may also use any compression sock in place of the PARISH hose. - Utilize [employer] to review exercises, see videos on exercises and obtain basic information pertaining to your surgery and your recovery. Dressing: Remove the Hemant wrap by 2 days after your surgery and put on the PARISH stocking given to you from the hospital. Keep the surgical dressing (underneath the HEMANT wrap) in place for at least one week. After the first week it may be removed and replaced with light gauze and tape or nothing. The wound and dressing may get wet after 3 days but avoid soaking the dressing or otherwise it will need to be changed. Many people prefer covering the dressing with cling wrap (saran wrap) to minimize it from getting soaked. If it gets wet, just pat dry. If it starts to peel off then it will need to be changed. Medications: - You should take Tylenol and Advil/Ibuprofen for baseline pain control. - You have been prescribed a stronger pain medication hydromorphone for breakthrough pain, take as needed as prescribed. - You have also been prescribed a stomach acid reduction agent Pantoprozole to help reduce stomach acid and reflux. - You will be taking Aspirin 81mg twice a day for DVT prevention unless instructed otherwise. - If you have constipation you should take Colace or Miralax (both [id number]). It takes most people 3-4 days to have a bowel movement. Follow-up: 2 weeks If you have any acute concerns or questions, please do not hesitate to contact the office at [phone]. You may contact Dr. Simon with any questions after hours through the hospital at [phone] or on his cell phone at [phone]. Referrals: Blas Simon MD [ [facility] STAFF PHYSICIAN] - Equipment/Supplies: Walker Activity:: Activity as Tolerated Shower/Bathe:: 72 hours Diet:: As Tolerated Discharge Orders Discharge Orders: Discharge Order (Routine); Ordered 03/29/24 Ordered By: Oli Bell DS: Diagnosis Discharge Diagnosis (1) Chondromalacia, right knee: Status: Resolved
[2024-03-29] MEDS: ceFAZolin 2 GM/50 ML BAG IVPB (11:25)
[2024-03-29] MEDS: TRANEXAMIC ACID/SOD. CHL. 1,000 MG/100 ML BAG 600 MG IVPB (11:30)
--- NOTE | 2024-03-29 11:49 | ANES.NERVE_ITS ---
Nerve Block Single Injection Procedure Date and Time Date Performed: 03/29/24 Procedure Start: 11:04 Location Where Procedure Performed Procedure Location: Day Surgery Unit Reason Performed: Postoperative Analgesia Requesting Provider: Blas Simon Timeout Performed Timeout Performed: Yes Monitoring Used ECG, Blood Pressure and SpO2 Sterility Sterility: Hand Hygiene, Surgical Cap, Surgical Mask, Sterile Gloves and Chlorhexidine Sedation Given During Procedure Sedation Given (Indicate Dose Given): Versed IV Dose:: 1 mg Patient Mental Status Patient Mental Status: Awake Nerve Block 1st Nerve Block: Laterality: Right Block Type: Adductor Canal Ultrasound Image Saved?: Yes Needle / Catheter Used: 100mm SonoPlex II Local Anesthetic Bolus (Indicate Dose Given): Lidocaine used for local infiltration of skin, Injected in 3-5ml increments after negative blood aspiration and Bupivacaine 0.25% Dose:: 7 mL Additives (Indicate Dose Given): None Ultrasound: Sterile probe cover and gel used Nerve Stimulator: Supplement to Ultrasound use and No twitch or par asthesia noted < 0.5 mA Paresthesia: None Procedure Tolerated: No Complications Procedure Outcome: Successful Performed By: Juan Luis Adams 2nd Nerve Block: Laterality: Right Block Type: Other (AFCN) Ultrasound Image Saved?: Yes Needle / Catheter Used: 100mm SonoPlex II Local Anesthetic Bolus (Indicate Dose Given): Bupivacaine 0.25% Dose:: 5 mL Additives (Indicate Dose Given): None Ultrasound: Sterile probe cover and gel used Nerve Stimulator: Supplement to Ultrasound use and No twitch or parasthesia noted < 0.5 mA Paresthesia: None Procedure Tolerated: No Complications Procedure Outcome: Successful Procedure Comment: Prior to blocks, introductions were made. Discussed plan, and that if the AFCN are easily seen we can add them in, pt agrees. Performed By: Juan Luis Adams
--- NOTE | 2024-03-29 12:57 | W.ANESPOSTOP ---
Postoperative Evaluation Date, Time and Location Date Performed: 03/29/24 Time Performed: 12:57 Patient Location: PACU Vital Signs Most Recent Imported Vital Signs: Most Recent Vital Signs Temp Pulse Resp BP Pulse Ox 36.8 C 77 18 161/64 H 97 03/29/24 10:58 03/29/24 10:58 03/29/24 10:58 03/29/24 10:58 03/29/24 10:58 Pain Score Most Recent Pain Score: Most Recent Pain Score Pain Level 0 03/29/24 10:58 Assessment Mental Status: Awake (Alert & Oriented to Patient Baseline) Airway and Respiratory Function: Patent airway with normal (patient baseline) respiratory exam Cardiovascular Function: Hemodynamically Stable Hydration Status: Adequately Hydrated Nausea & Vomiting: No Nausea or Vomiting Pain: Pt. Denies Any Pain (spinal still waning) Peripheral Nerve Block: Regional nerve block not resolved at time of post operative discharge
[2024-03-29] MEDS: HYDROmorphone 1 MG/ML SYR IVP (13:17)
--- NOTE | 2024-03-29 13:42 | ROE_ITS ---
Operative Note Operative Note PRE-OP DIAGNOSIS: Right Knee Osteoarthritis POST-OP DIAGNOSIS: same PROCEDURE: Right Total Knee Replacement SURGEON: Blas Simon FLOW MATCH SOFA CUTTER: Vesta Bell ANESTHESIA TYPE: Spinal Refer to Anesthesia Record ESTIMATED BLOOD LOSS: 100 PATHOLOGY: none sent TOURNIQUET TIME: 0 COMPLICATIONS: None Patient was transported to: PACU Patient's condition: stable Implants: 1. Depuy Attune Cementless Cruciate Retaining Femoral Component, Size 4 2. Depuy Attune Cementless Fixed Bearing Tibial Component, Size 3 3. Depuy Attune 4x6mm CR/FB Poly 4. Depuy Attune Patellar Component, Size 32 Indications: I have seen Willa in clinic for symptoms of knee arthritis, confirmed with radiographic findings. She has exhausted nonoperative methods and was having significant limitations in daily function and desired better function and less pain. I discussed the technical details of a knee replacement. I explained the risks of the procedure to include, but not limited to, bleeding, infection, pain, stiffness, fracture, damage to nerves and vessels, damage to muscles and tendons, loosening, need for repeat procedure, blood clot and cardiopulmonary demise. Despite these risks, Willa elected to proceed. Findings: There was significant signs of arthritis throughout the knee. Procedure Description: Willa was greeted in the preoperative holding area where the correct side was identified and marked. The consent was reviewed with the patient and signed. The history and physical was updated. All questions were answered. Preoperative medications were administered: Acetaminophen 1000mg, Celebrex 400m g, and Gabapentin 300mg. An adductor canal block was then administered by the anesthesia team in the DSU. She was taken back to the operating room. A spinal anesthestic was then administered. The patient was placed into the supine position on the operating room table. Posts were placed for positioning during the procedure. All bony prominences were well padded. Prophylactic antibiotics in the form of Cefazolin were administered. 1g of Tranxemic Acid was given intravenously within 30 minutes of incision. The right leg was then prepped with Chloraprep and draped in a standard fashion with impervious stockinette. A second prep with Chloraprep was performed prior to application of Iodine impregnated skin protection. A timeout to confirm correct identity, side and site, procedure, al lergies, anesthesia, and medical concerns was performed. With the knee in some flexion, a midline incision was made overlying the knee. Full thickness skin flaps were raised once the extensor mechanism was encountered. These were raised medially and laterally. Any bleeding was controlled with electrocautery. Once the extensor mechanism was fully exposed, a medial parapatellar arthrotomy was performed in a flexed position. All bleeding from the arthrotomy and the geniculate arteries was coagulated. A medial subperiosteal peel was performed with electrocautery to the midcoronal plane. The fat pad was removed while keeping the patellar tendon protected. The anterior distal femur synovium was removed for later visualization. The ACL and PCL were resected and the anterior horn of the lateral meniscus was transected. The knee was then flexed with the patella everted. Large osteophytes from the tibia were removed. Large osteophytes from the femur were removed. Using a step drill, and based on preoperative templating, the femoral canal was entered. This was done with a step drill without any difficulty. The intramedullary distal femoral cut guide was inserted, set to a 5 degree valgus cut and 9mm cut thickness. The distal femoral cut guide was then held in position and pinned. With the soft tissues protected, the distal cut was performed. This was passed over a few times to ensure a planar cut. I then turned attention to the tibia. The extramedullary guide was placed onto the leg. The distal aspect was slid medial to adjust for position of center of ankle and stay in line with shaft of the tibia. Approximately 3-5 degrees of posterior slope was kept in the proximal cutting guide. The center of the guide was aligned with the PCL. The stylus was used to assess cut thickness. The medial side, most involved side, was set for a 4mm cut. This was then held in position and pinned into place with 2 additional pins and a cross pin for stability. The medial and lateral collateral ligaments were protected and the cut was performed. With this completed, it was assessed and noted to be of appropriate dimensions. The guide was removed. A spacer block was inserted and the knee was brought into extension. The 6mm spacer block provided full extension, without hyperextension and with stability of both the medial and lateral collateral ligaments was assessed. The pins from the femur and the tibia were then removed. The distal femur was then sized. The anterior stylus was placed onto the lateral ridge of the anterior femur. This indicated a size 4 femur. The external rotation of the guide was adjusted to 3 degrees to match the epicondylar axis, perpendicular to Bledsoe?s line. The 4-in-1 cutting guide was the placed. The posterior medial femur cut was evaluated and appeared of good thickness. The spacer block was inserted underneath the cutting guide and stability was confirmed in 90 degrees of flexion. An keri wing was used to confirm appropriate position of the anterior cut to avoid notching. This cutting guide was ensured to be flush on the cut surface and then pinned into place with headed pins. While protecting the soft tissues, quad tendon, and collateral ligaments, the anterior and posterior cuts were performed with a saw. The central two pins were removed and the posterior and anterior chamfers were cut next. The notch-cutting guide was placed. This was pinned to lateralize the femoral component as much as possible while keeping it flush on the cut surface. This was then pinned into position. A reciprocating saw was used to make the notch cut. A rasp smoothed the cut surfaces. The medial and lateral menisci were removed. A trial femoral component was then inserted, impacted down to the cut surfaces, and the lug holes were drilled. A provisional trial tibial component was placed and the knee was brought through range of motion. There was noted to be excellent extension and flexion. There was no significant instability. The patella was tracking without thumbs. A size 6mm polyethylene component provided the best range of motion and stability with less than 2mm gapping with medial a nd lateral stress and full extension without significant hyperextension. The tibial cut surface was fully exposed. The tibia was then sized as a 3. The tibia had been previously marked during trialing to correspond to the center of the tibial component to help with rotation. The trial was aligned to this vesta, approximately rotated to the medial 1/3rd of the tibial tubercle. The trial was pinned into place. The tibia was prepared with a reamer and a keel punch and lug holes. The knee was then brought into extension and the patella was measured as 21mm. Using the patellar clamp and cut guide, this was resected to a flat surface with at least 13mm of thickness remaining. The size 32 patella fit the best. This was oriented and then clamped into position. The lugs were drilled. The trial components were removed. The final components were opened on the back table. The periosteal and capsular tissues, especially posteriorly, around the knee were then systematically injected with a periarticular cocktail consisting of 246mg of Ropivacaine, 0.5mg of Epinephrine, 0.08mg of Clonidine, and 30mg of Ketorolac, diluted to 100cc. On the back table, with the implants opened, the cement was mixed. One batch of high viscosity cement was prepared with vacuum assistance. After the cement was ready a small amount was placed on the cut surface of the patella and the patellar button was clamped into position and held. While the cement was hardening, the cementless knee components were placed. Starting with the tibial component, the tibia was subluxed anteriorly and the lug holes of the component were lined up. The tibia was then impacted with an impactor and mallet until the tibial component was in contact with the tibia. The final polyethylene component was inserted. Then, the femoral component was inserted. The lug holes were aligned and the component was impacted into position. The knee was irrigated with Surgiphor Betadine solution. This was allowed to sit in the knee for 3 minutes and then it was irrigated out with saline. After the cement had finally cured, approximately 15min, the clamp was removed from the patella and the knee was taken through range of motion. The patella was tracking with a no-thumbs technique. The capsule was then reapproximated with a No. 1 Vicryl at multiple locations. The capsule was finally closed with a No. 2 Stratafix, barbed suture. The second dosing of 1g TXA was started. Deep tissues were then reapproximated with 0 Vicryl and 2-0 Vicryl. The skin was closed with a running 3-0 Monocryl in a subcuticular fashion. This was reinforced with skin glue. A Mepilex silver dressing was applied along with a [id number] KIKE wrap. A CryoCuff was applied. Willa was transferred to the hospital bed without difficulty an suffering no apparent complication. Willa has a good prognosis. Physical therapy will start today and without restrictions, weight-bearing as tolerated. Aspirin 81mg BID will be used for DVT prophylaxis. Date of Procedure: 03/29/24
--- NOTE | 2024-03-29 14:49 | IN_ITS ---
PT Notes Visit Reasons: R TKR Physical Therapy Day Surgery Initial Evaluation Date: 03/29/2024 Referring Doctor: AVIS Carpenter PT Orders: PT CONSULT: S/P ortho Surgery Precautions: WBAT on R LE with AD. Patient Profile/Admitting Diagnosis: Willa is a 68-year-old female with chondromalacia of right knee and is status po st right total knee arthroplasty on postoperative day 0. PMHX: Medical History (Updated 01/27/24 @ 12:10 by AVIS Mustafa) Kermit's disease HTN (hypertension) History of Prinzmetal angina cardiac (stress test and ECHO) work-up 11/17/21 Treadmill stress test negative for angina pectoris for abdominal pain radiating to back and into shoulder blades-per pt. states all negative 11/17/21 [place] [facility] [place] Psoriatic arthritis IBS (irritable bowel syndrome) Back pain Surgical History (Updated 02/25/22 @ 10:59 by AVIS Carpenter) History of superficial keratectomy Hx of discectomy [id number] of back surgery c6-c7 fusion and plating History of rotator cuff surgery right Social History/Home Situation: Lives with in a private home with 16 steps with rails to the second floor of the house where the bedroom is. Has 4 entry steps with rails. Equipment Owned/DME: None Subjective: Complained of 2/10 pain on the right knee that subsided with ambulation performance. Denied headache, chest pain, and lightheadedness throughout session. Objective: General Observation: KIKE wraps to right LE. Cryo/Cuff to right knee. TEDS to left leg and foot. Mental Status: A and O x 4 Pain: As above ROM: Right Lower Extremity: Hip flexion WFL. Hip abduction WFL. Knee flexion about 10 degrees to 100 degrees. Knee extension -10 degrees. Ankle dorsiflexion WFL. Ankle plantarflexion WFL. Left Lower Extremity: Hip flexion WFL. Hip abduction WFL. Knee flexion WFL. Ankle dorsiflexion WFL. Ankle plantarflexion WFL. Strength: Right Lower Extremity: Hip flexors 4/5. Hip abductors 4/5. Knee flexors 3-/5. Knee extensors 3-/5. Ankle dorsiflexors 5/5. Ankle plantarflexors 5/5. Left Lower Extremity:Hip flexors 5/5. Hip abductors 5/5. Knee flexors 5/5. Knee extensors 5/5. Ankle dorsiflexors 5/5. Ankle plantarflexors 5/5. Sensation: Intact tested pain and light pressure in bilateral lower extremities Bed Mobility/Transfers: Minimal cueing provided for use of B hands as needed for support, movement sequence, AD management, and posture to reduce fall risk and minimize pain report Supine to sit stand by assist Sit to stand contact guard assist with FWW Stand to sit stand by assist with FWW Bed to chair stand by assist with FWW Gait: Facilitate safe and correct performance of level surface ambulation covering a distance of 150 feet with reciprocal swing through heel-toe gait pattern requiring only standby assist with minimal verbal cueing to ensure full knee extension and mid stance prior to stepping with the left foot to ensure right knee stability, walker management, and posture to minimize pain reported reduce fall risk. Stairs: Guided patient with safe and correct negotiation of 9 x 4 inch steps and 6 x 6 inch steps while holding onto bilateral rails with step to gait pattern requiring minimal verbal cueing for limb sequence, increased flexion on the right knee during each ascent, and posture to minimize pain reported reduce fall risk. Balance: Static Sitting: Normal Dynamic Sitting: Normal Static Standing: Fair Dynamic Standing: Fair Special Tests: Mobility Limitations Standardized Measure [facility] 6 clicks Basic Mobility Inpatient Short Form: Raw Score: 23 CMS Score: 11% deficit Informed Consent/Education: Patient instructed in purpose of PT consult. Packet containing TKA exercise protocol has been given to patient. Education and training on initial set of exercises that can be done at home have been completed with patient. Trained patient with correct performance of exercises below to maximize motor control, joint flexibility, soft tissue extensibility of the R knee musculature: Access Code: [email or web address] URL: [email or web address] Date: 03/29/2024 Prepared by: Nicole Acosta Exercises - Supine Quad Set - 1 x daily - 7 x weekly - 1 sets - 10 reps - 5 hold - Supine Heel Slide - 1 x daily - 7 x weekly - 1 sets - 10 reps - 5 hold - Supine Ankle Pumps - 1 x daily - 7 x weekly - 1 sets - 10 reps - 5 hold - Small Range Straight Leg Raise - 1 x daily - 7 x weekly - 1 sets - 10 reps - 5 hold - Seated May - 1 x daily - 7 x weekly - 1 sets - 10 reps - 5 hold Assessment: Patient requires the use of a front wheeled walker for all mobility ADL performance to maximize independence and reduce fall risk. Patient presents with clinical signs and symptoms consistent with current/admitting diagnoses that have resulted to mobility limitations, gait instability, generalized weakness, and impairment of motor control as demonstrated by the following impairment level findings: 1. Decreased strength to R knee major muscle groups 2. Impaired standing balance 3. Limitation of joint range of motion in R knee Impairments are contributing to the following functional limitations: 1. Inability to safely ambulate without assistive device 2. Increase completion time for mobility ADL performance 3. Increased fall risk Patient is assessed as a 69634 moderate complexity based on the following: History: 68-year-old female with impairment level findings, functional limitations, and past medical history as indicated above Examination: Demonstrable impairment in strength, balance, and mobility level with underlying impairments and functional limitations as documented above Presentation: Evolving Decision Makin moderate complexity high Goals: N/A. PT evaluation and 1-2 treatment sessions only for functional mobility training using recommended AD and for HEP instruction. Plan of Care/Treatment Plan: N/A. PT evaluation and 1-2 treatment session only for functional mobility training using recommended AD and for HEP instruction. DISCHARGE RECOMMENDATIONS: Home when medically cleared by orthopedic surgeon. Recommend outpatient PT services in order to optimize functional mobility outcomes and facilitate return to independent community ambulation without an assistive device. TREATMENT CODE/TIME: 56732 x 23 minutes for 1 unit (14: 49?15: 12). Thank you for the opportunity to participate in the care of this patient. Nicole Acosta PT, DPT, CLT [facility] [place], [place]
== END 2024-03-29 15:30 | disposition home or self-care (01) ==
PROVIDERS: Visit Provider Student in an Organized Health Care Education/Training Program
PROC: (CPT 27447; principal; 2024-03-29 11:30)
DX: M17.11 Unilateral primary osteoarthritis, right knee (principal); M94.261 Chondromalacia, right knee; M25.561 Pain in right knee; G89.18 Other acute postprocedural pain; E78.5 Hyperlipidemia, unspecified; J45.909 Unspecified asthma, uncomplicated; E03.9 Hypothyroidism, unspecified; I10 Essential (primary) hypertension
CPT/HCPCS: 27447; 64447; 64450; 97162; C1776; J0665; J0690; J1100; J1171; J2250; J2401; J2405; J2704

== ENCOUNTER 2024-04-13 11:30 | Outpatient (CLI) | payer MEDICARE, BC, SELFPAY ==
--- NOTE | 2024-04-13 10:15 | DI.RAD_ITS ---
Exam(s) XR KNEE RT 1V XR STANDING ALIGNMENT EXAM: XR STANDING ALIGNMENT CLINICAL HISTORY: 1ST POST OP S/P R TKA. TECHNIQUE: 2D digital imaging was performed. Standing AP views were performed from the pelvis throu gh the ankles. Lateral view right knee COMPARISON: CR XR STANDING ALIGNMENT from 03/17/2024 CR XR KNEE RT 1V from 04/13/2024 FINDINGS: BONES: No acute fracture is present. No bony destructive lesion is seen. Leg length discrepancy: No significant overall leg length discrepancy. JOINTS: Knees: A right total knee prosthesis has been placed which show satisfactory alignment. Th e left knee joint spaces are maintained. The ankle joints show chronic deformities at the medial malleoli. This is likely secondary to remot e trauma. The hip joints are unremarkable. SOFT TISSUE: Normal. IMPRESSION: Satisfactory alignment of right knee prosthesis. No significant leg length discrepancy. DATA REPOSITORY: RADIATION DOSE DELIVERED:
== END 2024-04-13 11:31 | disposition home or self-care (01) ==
LOC: DIORS 11:31
PROVIDERS: Visit Provider Student in an Organized Health Care Education/Training Program
DX: Z96.651 Presence of right artificial knee joint (principal); Z47.1 Aftercare following joint replacement surgery
CPT/HCPCS: 99024; 73560; 77073

== ENCOUNTER → 2024-05-11 10:43 | Outpatient (BNVA) | payer MEDICARE, BC, SELFPAY | PROVIDERS: Visit Provider Student in an Organized Health Care Education/Training Program | DX: Z47.1 Aftercare following joint replacement surgery (principal); Z96.651 Presence of right artificial knee joint | CPT/HCPCS: 99024 ==

== ENCOUNTER → 2024-06-26 11:02 | Outpatient (BNVA) | payer MEDICARE, BC, SELFPAY | PROVIDERS: Visit Provider Student in an Organized Health Care Education/Training Program | DX: Z47.1 Aftercare following joint replacement surgery (principal); Z96.651 Presence of right artificial knee joint | CPT/HCPCS: 99024 ==

== ENCOUNTER → 2024-07-31 12:45 | Outpatient (BNVA) | payer MEDICARE, BC, SELFPAY | PROVIDERS: Visit Provider Student in an Organized Health Care Education/Training Program | DX: Z47.1 Aftercare following joint replacement surgery (principal); Z96.651 Presence of right artificial knee joint | CPT/HCPCS: 99213 ==